=== PATIENT | female | born 1965 | race Caucasian/White ===

== ENCOUNTER → 2023-08-21 | Outpatient (CLI) | payer BC ==
--- NOTE | 2023-08-21 17:27 | P.SLEEP ---
History of Present Illness DATE: 08/21/2023 CONSULTATION/NEW PATIENT EVALUATION HISTORY OF PRESENT ILLNESS/SLEEP-WAKE EVALUATION: 57-year-old lady had been evaluated in the sleep center for obstructive sleep apnea hypopnea syndrome. Patient had been diagnosed with obstructive sleep apnea 6 years ago. Since that time patient is on treatment on CPAP and patient continued to use CPAP equipment every night until now. Since previous sleep study patient lost about 170 pounds. I checked CPAP unit. Range of the pressure from 6-20, average 11.2. Usage is 100% of nights. Average usage 8.4 hours per night. Leak is 2 L/m which is normal. Apnea-hypopnea index slightly increased to 8.5, which include central apnea index 6.8. SLEEP SCHEDULE: Usually sleep schedule from 9 PM to 4:30 AM on weekdays and from 1011 PM to 67 AM on weekend. FALLING ASLEEP: No problems with falling asleep. DURING SLEEP: []No snoring with CPAP. Without CPAP patient snores, but less then before she lost weight. Occasionally patient may wake up from sleep. No history of hypnogogical hallucinations, sleep paralysis, or cataplexy. DURING THE DAY/WAKE STATE: No significant sleepiness during the day. [place] sleepiness scale is 4. Patient doesn't take naps. PAST MEDICAL HISTORY: Hypertension, anxiety. PAST SURGICAL HISTORY: Gastric sleeve surgery in 2017, cholecystectomy, C- sections 3. MEDICATIONS: Losartan, Effexor 150 mg 2 tablets a day. SOCIAL HISTORY: Negative for smoking, alcohol consumption occasional. FAMILY HISTORY: Hypertension, asthma, cancer, diabetes, mental illness. REVIEW OF SYSTEMS: Occasional awakenings from sleep. No fevers. No double vision. No recent chest pain. No shortness of breath. No abdominal pain. No bleeding episodes. No blood in urine. No seizure episodes. PHYSICAL EXAMINATION: GENERAL: A pleasant patient without any distress. VITAL SIGNS: BP 117/76 , HR 68 , RR 16 , weight 156 pounds, height 5 foot 3 inches, body mass index 27.6 . HEENT: PERRLA, EOMI. Evaluation of oropharynx showed tongue protrudes midline, low position of soft palate Mallampati 3. NECK: Supple. No JVD. Thyroid is not palpable. 13.5 inches in circumference. LUNGS: Clear to percussion and to auscultation. Good air exchange. No wheezing or rhonchi. HEART: S1, S2 regular. No murmurs, gallops or rubs. ABDOMEN: Soft and nontender. Bowel sounds are present. No organomegaly appreciated. EXTREMITIES: No clubbing or cyanosis. STONE GLUER: Awake, alert, and oriented x3. Cranial nerves 2 to 7 intact. There is no fasciculation or atrophy noted. No focal deficits observed. ASSESSMENT: 1. Obstructive sleep apnea-hypopnea syndrome for 6 years. Patient continued to use CPAP equipment every night. Patient lost 170 pounds since previous sleep study when she was diagnosed with sleep apnea. Low position of soft palate Mallampati 3. 2. Reading information from CPAP unit showed 6.8 episodes of central apnea per hour. 3. Hypertension. 4. History of anxiety. 5 status post gastric sleeve in 2017. 6 . Status post cholecystectomy. 7. Status post C-sections 3. PLAN: 1. Home sleep apnea test for evaluation of patient's breathing during sleep at the present time after patient lost 170 pounds. 2. Following plan after reading sleep test. 3. Preferable position during sleep on the side. 4. No driving if patient feels any sleepiness. Patient is aware of civil and criminal liability for unsafe driving. 5. Sleep hygiene with regular sleep time for at least 7.5-8 hours. 6. Watching weight. Thank you very much for referring this patient for consultation. Sincerely, Clinton Bui MD, PhD, FAASM. Diplomat of [place] [employer], Sleep Medicine Board by [place] [employer] [place] [employer] Utility [employer] [facility] [place] Sleep Note - Sleep Note Sleep Note: Temperature: Pulse Rate: Respiratory Rate: Blood Pressure: SpO2: Height: Weight: BMI: Neck Circumference:
== END ==
LOC: 3 N SLEEP 16:28
PROVIDERS: ATTEND Internal Medicine
DX: G47.33 Obstructive sleep apnea (adult) (pediatric) (principal); I10 Essential (primary) hypertension; F41.9 Anxiety disorder, unspecified; Z98.84 Bariatric surgery status; Z90.49 Acquired absence of other specified parts of digestive tract; Z98.890 Other specified postprocedural states; Z99.89 Dependence on other enabling machines and devices
CPT/HCPCS: 99202

== ENCOUNTER → 2023-08-26 | Outpatient (CLI) | payer BC ==
--- NOTE | 2023-08-27 20:52 | MM ---
Reason for Exam: Screening (asymptomatic). Last mammogram was performed 1 year(s) and 6 month(s) ago. Patient History: Menarche at age 12. First Full-Term at age 37. Late child-bearing (after 30). Postmenopausal. Risk Values: Angely 5 year model risk: 1.8%. NCI Lifetime model risk: 12.2%. Prior Study Comparison: 11/01/2004 Bilateral Screening Mammogram, [facility]. 11/06/2004 Left Special View Mammogram, [facility]. 11/06/2004 Left Diagnostic Ultrasound, [facility]. 07/21/2020 Bilateral MG 3D screening mammo w/cad, Unknown. 02/15/2022 Bilateral MG 3D screening mammo w/cad, Unknown. Tissue Density: There are scattered fibroglandular densities. Findings: Analyzed By CAD. Chronic nodularity on the left. There is no suspicious group of microcalcifications or new suspicious mass in either breast. Overall Assessment: Benign, BI-RAD 2 Management: Screening Mammogram of both breasts in 1 year. . Patient should continue monthly self-breast exams. A clinical breast exam by your physician is recommended on an annual basis. This exam should not preclude additional follow-up of suspicious palpable abnormalities. Note on Angely scores and lifetime risk: 1. A Angely score greater than 3% is considered moderate risk. If this is the case, consider specialist referral to assess eligibility for a risk reducing agent. 2. If overall lifetime risk for the development of breast cancer is 20% or higher, the patient may qualify for future screening with alternating mammogram and breast MRI. Electronically signed and approved by: German Burton M.D. Radiologist
== END | disposition home or self-care (01) ==
LOC: RADMAMWWP 15:36
PROVIDERS: ATTEND Obstetrics & Gynecology
DX: Z12.31 Encounter for screening mammogram for malignant neoplasm of breast (principal); Z78.0 Asymptomatic menopausal state
CPT/HCPCS: 77063; 77067

== ENCOUNTER → 2023-09-02 | Outpatient (CLI) | payer BC ==
--- NOTE | 2023-09-03 14:47 | P.PCN ---
Description of Procedure: CLINICAL: A home sleep apnea test has been done for confirmation of possible obstructive sleep apnea-hypopnea syndrome. DESCRIPTION OF PROCEDURE: RESULTS: Recording time was 8 hours 7 minutes. Evaluation time was 7 hours 42 minutes. Evaluation time is sufficient for making conclusion about results of the test. Raw data of sleep recording has been reviewed and is adequate. Respiratory channel showed 18 apneas and 65 hypopneas. Apnea-hypopnea index was 10.8 per hour. Pulse rate in the range between minimum 55, maximum 235, average 63 by computer calculation. Lowest desaturation was 68%. IMPRESSION: 1. Obstructive Sleep Apnea Hypopnea Syndrome in mild range. 2. Hypertension. 3. History of anxiety. Please see other impressions from consultation. PLAN: 1. The patient will continue auto-PAP treatment for correction of respiratory abnormallities during sleep. 2. I will see patient for follow up visit to discuss results of the test, evaluate clinical response on treatment with PAP therapy and make any necessary adjustments related to mask fitting, pressure, and humidification. 3. Watching weight. 4. Sleep hygiene with regular time in bed for at least 8 hours. 5. No driving if feeling any sleepiness. Thank you very much for allowing me to participate in the management of your patient. Sincerely, Clinton Bui MD, PhD, FAASM Diplomat of [place] [employer] Sleep Medicine Board of [place] [employer] Legal Paraprofessional [facility] [place]
== END ==
LOC: 3 N SLEEP 16:19
PROVIDERS: ATTEND Internal Medicine
DX: G47.33 Obstructive sleep apnea (adult) (pediatric) (principal); Z13.89 Encounter for screening for other disorder; I10 Essential (primary) hypertension; F41.9 Anxiety disorder, unspecified; Z99.89 Dependence on other enabling machines and devices

== ENCOUNTER 2023-09-23 08:30 | Day surgery (SDC) | payer BC ==
[~2023-09-23 08:30] MED LIST: LIDOCAINE 1% (10MG/ML) FOR IV START INTRADERMA PRN
[2023-09-23 09:15] VITALS: RESP 16; TEMP 96.9
[2023-09-23] MEDS: LACTATED RINGERS 1,000 ML IV SCH (09:18)
[2023-09-23] MEDS ORDERED: PROPOFOL 10 MG/ML 20 ML VIAL IV ONE (09:19)
--- NOTE | 2023-09-23 09:22 | P.GSHP ---
History of Present Illness H&P Date: 09/23/23 Chief Complaint: Colon cancer screening 57-year-old female here for colonoscopy. Patient has not had one previously. No bowel complaints. No family history of colon cancer. Past Medical History Past Medical History: Hyperlipidemia, Hypertension, Sleep Apnea/CPAP/BIPAP, Thyroid Disorder Additional Past Medical History / Comment(s): cpap waiting for new one to arrive History of Any Multi-Drug Resistant Organisms: None Reported Past Surgical History: Bariatric Surgery, Section, Cholecystectomy, Orthopedic Surgery Additional Past Surgical History / Comment(s): ivf retrival, lft knee arthroscopy, gastric sleeve Past Anesthesia/Blood Transfusion Reactions: No Reported Reaction Smoking Status: Never smoker - Past Family History Father Family Medical History: No Reported History Medications and Allergies Home Medications Medication Instructions Recorded Confirmed Type Atorvastatin Calcium 10 mg PO DAILY 09/19/23 09/19/23 History Levothyroxine Sodium [Synthroid] 50 mcg PO DAILY 09/19/23 09/19/23 History Losartan Potassium 50 mg PO DAILY 09/19/23 09/19/23 History Multivitamins, Thera [Multivitamin 1 tab PO DAILY 09/19/23 09/19/23 History (formulary)] Venlafaxine HCl ER [Effexor Xr] 150 mg PO DAILY 09/19/23 09/19/23 History Allergies Allergy/AdvReac Type Severity Reaction Status Date / Time No Known Allergies Allergy Verified 09/23/23 08:57 Surgical - Exam Vital Signs Temp Pulse Resp BP Pulse Ox 96.9 F L 67 16 120/66 100 09/23/23 09:02 09/23/23 09:02 09/23/23 09:02 09/23/23 09:02 09/23/23 09:02 Physical exam: General: Well-developed, well-nourished HEENT: Normocephalic, sclerae nonicteric Abdomen: Nontender, nondistended Extremities: No edema Neuro: Alert and oriented Assessment and Plan (1) Colon cancer screening Narrative/Plan: Will proceed with colonoscopy at this time Current Visit: Yes Status: Acute Code(s): Z12.11 - ENCOUNTER FOR SCREENING FOR MALIGNANT NEOPLASM OF COLON SNOMED Code(s): 325944428
--- NOTE | 2023-09-23 09:32 | P.PCN ---
Date of Procedure: 09/23/23 Procedure(s) Performed: PREOPERATIVE DIAGNOSIS: Colon cancer screening POSTOPERATIVE DIAGNOSIS: Poor prep, diverticulosis PROCEDURE: Colonoscopy ANESTHESIA: MAC SURGEON: Yan Dhaliwal M.D. SPECIMENS: None ENDOSCOPIC PROCEDURE: The patient was placed on the endoscopy table in the left decubitus position. The Olympus colonoscope was inserted into the anus and passed under direct visualization to the mid transverse colon. The patient had retained liquid and solid stool throughout. There was seem to be an increased volume of stool in the transverse colon. We aborted any further advancing of the scope at that time. The visualized transverse descending sigmoid and rectum had no neoplastic or polypoid lesions. The patient had mild scattered diverticulosis. Digital rectal examination was normal. The patient was taken to the recovery room in stable condition per anesthesia guidelines. RECOMMENDATIONS: Patient will require repeat attempt at bowel prep and colonoscopy. Will discuss further with patient.
[2023-09-23 09:53] VITALS: BP 117/73; PULSE 61
== END 2023-09-23 10:06 | disposition home or self-care (01) ==
LOC: ORWHC2ENDO 08:30
PROVIDERS: ATTEND Surgery
DX: Z12.11 Encounter for screening for malignant neoplasm of colon (principal); K57.30 Diverticulosis of large intestine without perforation or abscess without bleeding; I10 Essential (primary) hypertension; E78.5 Hyperlipidemia, unspecified; G47.33 Obstructive sleep apnea (adult) (pediatric); E07.9 Disorder of thyroid, unspecified; Z90.49 Acquired absence of other specified parts of digestive tract; Z98.891 History of uterine scar from previous surgery; Z79.890 Hormone replacement therapy; Z79.899 Other long term (current) drug therapy
CPT/HCPCS: 45378; J2704

== ENCOUNTER → 2025-01-11 | Outpatient (CLI) | payer BC ==
[2025-01-12 01:56] LABS: HGB 13.5 g/dL (12.0-15.0); MCH 30.6 pg (27.0-32.0); MCHC 31.4 g/dL (32.0-37.0); MCV 97.5 FL (80.0-97.0); Mean Platelet Volume 10.8 FL (9.5-12.2); NRBC Per 100 WBC 0 X 10*3/uL (0.00-0.01); Platelet Count 247 X 10*3/uL (140-440); RBC 4.41 X 10*6/uL (4.10-5.20); RDW 12.7 % (11.5-14.5); WBC 7.76 X 10*3/uL (4.50-10.00)
[2025-01-12 02:49] LABS: Blood Urea Nitrogen 36.7 mg/dL (9.0-27.0); Carbon Dioxide 27.1 mmol/L (21.6-31.8); Chloride 103 mmol/L (96-109); Potassium 5.1 mmol/L (3.5-5.5); Sodium 141 mmol/L (135-145)
== END | disposition home or self-care (01) ==
LOC: LABPAT 16:04
PROVIDERS: ATTEND Internal Medicine Interventional Cardiology
DX: Z01.812 Encounter for preprocedural laboratory examination (principal); I25.10 Atherosclerotic heart disease of native coronary artery without angina pectoris
CPT/HCPCS: 80051; 82565; 84520; 85027

== ENCOUNTER 2025-02-15 07:09 | Day surgery (SDC) | payer BC ==
[~2025-02-15 07:09] MED LIST changes: +ALPRAZolam 0.25 MG TAB PO PRN; +ALPRAZolam 0.5 MG TAB PO PRN; -LIDOCAINE 1% (10MG/ML) FOR IV START INTRADERMA PRN; +NITROGLYCERIN SL TABS 0.4 MG TAB SUBLINGUAL PRN
[2025-02-15] MEDS: SODIUM CHLORIDE 0.9% 1,000 ML in EMPTY BAG 1 BAG IV SCH (07:39)
[2025-02-15] MEDS: ASPIRIN 325 MG TAB PO STA (07:39)
[2025-02-15 07:41] VITALS: RESP 18; TEMP 98.1
[2025-02-15] MEDS: IV FLUID CONTINUATION 1,000 ML IV ONE (07:43)
[2025-02-15 07:51] LABS: Basophils # (A) 0.06 10*3/uL (0.00-0.10); Basophils % (A) 1.1 %; Eosinophils # (A) 0.19 10*3/uL (0.04-0.35); Eosinophils % (A) 3.5 %; HCT 40.0 % (37.2-46.3); HGB 13.0 g/dL (12.0-15.0); Lymphocytes # (A) 1.95 10*3/uL (0.90-5.00); Lymphocytes % (A) 35.5 %; MCH 30.7 pg (27.0-32.0); MCHC 32.5 g/dL (32.0-37.0); MCV 94.3 fL (80.0-97.0); Monocytes # (A) 0.54 10*3/uL (0.20-1.00); Monocytes % (A) 9.8 %; Neutrophils # (A) 2.73 10*3/uL (1.80-7.70); Neutrophils % (A) 49.6 %; Platelet Count 215 10*3/uL (140-440); RBC 4.24 10*6/uL (4.10-5.20); RDW 12.7 % (11.5-14.5); WBC 5.50 10*3/uL (4.50-10.00)
[2025-02-15 08:02] LABS: African American GFR (CKD) >90 (>60 ml/min/1.73 sqM); Anion Gap 4 mmol/L; Blood Urea Nitrogen 24 mg/dL (7-17); Calcium 9.6 mg/dL (8.4-10.2); Carbon Dioxide 30 mmol/L (22-30); Chloride 104 mmol/L (98-107); Glucose 91 mg/dL (74-99); Non-African American GFR(CKD) >90 (>60 ml/min/1.73 sqM); Sodium 138 mmol/L (137-145)
[2025-02-15 08:07] LABS: Potassium 5.7 mmol/L (3.5-5.1)
[2025-02-15] MEDS: HEPARIN SODIUM,PORCINE (1 ML) 2,500 UNIT in SODIUM CHLORIDE 0.9% 250 ML IRRIGATION PRN (09:01)
[2025-02-15] MEDS: HEPARIN SODIUM,PORCINE 10,000 UNIT in SODIUM CHLORIDE 0.9% 1,000 ML IRRIGATION PRN (09:01)
[2025-02-15] MEDS: fentaNYL (PF) 50 MCG/1 ML VIAL IVP ONE (09:35)
[2025-02-15] MEDS: LIDOCAINE 1% INJ 10MG/ML (20 ML MDV) SQ ONE (09:40)
[2025-02-15] MEDS: VERAPAMIL SYRINGE (5 MG/10 ML) INTRAARTER ONE (09:44)
[2025-02-15] MEDS: HEPARIN SODIUM 1,000 UN/ML (10ML VL) IVP ONE (09:47)
[2025-02-15] MEDS: IOPAMIDOL-370 100ML BTL INJ ONE (09:55)
[2025-02-15] MEDS ORDERED: RX INFO: IV CONTRAST WAS GIVEN 1 EACH MISC MISCELLANE PRN (10:07)
--- NOTE | 2025-02-15 10:13 | P.CARDCATH ---
Date of Procedure: 02/15/25 Description of Procedure: Cardiac Catheterization: The patient is a 59-year-old female with history of hypertension, hyperlipidemia, diabetes mellitus, coronary artery calcifications who has been complaining of dyspnea on exertion and had an abnormal MPI. Recommendations were made regarding cardiac catheterization, the risks and the complications were discussed with the patient who is in full understanding and agreement. Procedure Description: Patient was brought to chemical processing laborer in fasting semi-sedated state after receiving Fentanyl and Benadryl achieiving moderate conscious sedated state. Using Xylocaine Anesthesia and modified Seldinger technique, a 6-Georgian sheath was introduced in the right radial artery . Subsequently, selective coronary angiography was performed using a 5-Georgian 3.5 bend Alvin catheter. Multiple views of the coronary artery including hemiaxial views were obtained. The 5 Georgian pigtail catheter was used to cross the aortic valve and LVEDP was calculated. Following that, catheter and sheath were removed. Hemostasis was obtained with deployment of vascular band . There was no immediate complication. Patient was returned to room in stable condition. Of note, the patient received a total of 3500 units of intravenous heparin as well as intra-arterial verapamil. Findings: Fluoroscopy: Calcifications of the coronary arteries was noted Left main: This is a large size vessel, bifurcating into LAD and left circumflex, left main has no evidence of high-grade stenosis LAD: Sized vessel, reaching to the apex, giving rise to small diagonal branch. The LAD is tortuous distally. In the midsegment with no high-grade stenosis Left circumflex: This is a nondominant vessel, giving rise to 2 obtuse marginal branches, tortuous in their course. The left circumflex and its branches have no evidence of high-grade stenosis. RCA: This is a large dominant vessel, bifurcating distally to PDA and PLV. The RCA proximally has mild plaque of 10 to 20%, the rest of the vessel has no high- grade stenosis Left Ventriculogram: Not performed Hemodynamics: There was no gradient across the aortic valve, LVEDP was 18-20 mmHg Conclusion: 1. Calcified coronary arteries 2. Mild intimal disease in the LAD and RCA 3. Right dominance 4. Mildly elevated LVEDP Recommendations: I have recommended to continue medical therapy with the aggressive coronary risks modifications initiated. The findings and the recommendations were discussed with the patient and the family and they were in full understanding and agreement. Duration of sedation is 19 minutes.
[2025-02-15] MEDS ORDERED: SODIUM CHLORIDE 0.9% 1,000 ML IV SCH (10:15)
[2025-02-15 13:22] VITALS: BP 115/71; PULSE 62
[2025-02-15] MEDS ORDERED: VENLAFAXINE HCL ER 150 MG CAP PO SCH (21:00)
[2025-02-16] MEDS ORDERED: LEVOTHYROXINE 50 MCG TAB PO SCH (06:30)
[2025-02-16] MEDS ORDERED: LOSARTAN 50 MG TAB PO SCH (09:00)
[2025-02-16] MEDS ORDERED: ASPIRIN 81 MG PO SCH (09:00)
[2025-02-16] MEDS ORDERED: ATORVASTATIN 20 MG TAB PO SCH (09:00)
== END 2025-02-15 13:10 | disposition home or self-care (01) ==
LOC: CATHCVL 07:09
PROVIDERS: ATTEND Internal Medicine Interventional Cardiology
DX: I25.10 Atherosclerotic heart disease of native coronary artery without angina pectoris (principal); E11.9 Type 2 diabetes mellitus without complications; I10 Essential (primary) hypertension; E78.2 Mixed hyperlipidemia; Z79.82 Long term (current) use of aspirin; Z79.899 Other long term (current) drug therapy
CPT/HCPCS: 93458; 80048; 85025; 99152; C1769 ×2; C1894; J1644 ×3; J2003; Q9967; J3010